=== PATIENT | male | born 1975 | race Caucasian/White ===

== ENCOUNTER 2019-03-25 22:50 | Emergency (ER) | payer SELFPAY, OTHER ==
[2019-03-26] MEDS: FAMOTIDINE 20 MG TAB PO (00:16)
[2019-03-26] MEDS: METHYLPREDNISOLONE 125 MG INJ IM (00:16)
[2019-03-26] MEDS: DIPHENHYDRAMINE 50 MG CAP PO (00:16)
== END 2019-03-26 01:51 | disposition home or self-care (01) ==
LOC: FTE 03-26 01:51
DX: L50.9 Urticaria, unspecified (principal)
CPT/HCPCS: 96372; 99284-25; J2930